=== PATIENT | male | born 1965 | race African-American/Black ===

== ENCOUNTER 2017-05-14 11:03 | Emergency (ER) | payer MEDICAID ==
[~2017-05-14] VITALS: Ht 172.7 cm; Wt 68.0 kg
[2017-05-14 11:19] VITALS: BP 130/83
[2017-05-14] MEDS ORDERED: ACETAMINOPHEN 500MG TABLET PO ONE (11:45)
== END 2017-05-14 12:57 | disposition home or self-care (01) ==
LOC: ER 11:40
DX: J02.9 Acute pharyngitis, unspecified (principal); I10 Essential (primary) hypertension
CPT/HCPCS: 87070; 87430; 99284